=== PATIENT | male | born 2000 | race American Indian/Alaskan Native ===

== ENCOUNTER 2022-02-10 11:39 | Observation (INO) | payer MEDICARE, MEDICAID ==
[2022-02-10] MEDS ORDERED: IBUPROFEN 800 MG TAB PO NR (12:14)
--- NOTE | 2022-02-10 12:19 | Emergency Department Report ---
HPI - General Chief Complaint: Fever Time Seen by Provider: 02/10/22 11:53 - HPI HPI: Room 8 Patient is a 21-year-old male present with a chief complaint of fever. Patient is currently at [facility] secondary to schizophrenia with persistent disor ganized thought process. Patient was found to develop a fever yesterday and has been given Tylenol several times. Patient was sent to the ED for further evaluation patient's fever. When asked how the patient is feeling he states he feels "depleted." The patient admits to a slight cough that is productive of yellow sputum. Patient admits to rhinorrhea and nausea without vomiting. The patient states he has been vaccinated against COVID receiving 2 doses ED Past Medical Hx - Past Medical History Hx Hypertension: Yes Hx Psychiatric Treatment: Yes (Schizophrenia, bipolar disorder) Hx Asthma: Yes - Surgical History Additional Surgical History: Rotator cuff surgery, arch repair bilateral feet, T&A ED Review of Systems ROS: Stated complaint: FEVER Other details as noted in HPI Constitutional: fever, malaise Eyes: denies: eye pain ENT: denies: throat pain Respiratory: cough Cardiovascular: denies: chest pain Endocrine: no symptoms reported Gastrointestinal: nausea. denies: vomiting Genitourinary: denies: dysuria Musculoskeletal: denies: back pain Neurological: headache Physical Exam - Physical Exam Vital Signs: Vital Signs 02/10/22 11:43 Temperature 104.1 F H Pulse Rate 60 Respiratory 14 Rate Blood Pressure 140/90 [Left] O2 Sat by Pulse 98 Oximetry Physical Exam: GENERAL: The patient is well-developed well-nourished male lying on stretcher not appearing to be in acute distress. [] HEENT: Normocephalic. Atraumatic. Extraocular motions are intact. Patient has moist mucous membranes. NECK: Supple. No meningitic signs are noted. There is no nuchal rigidity CHEST/LUNGS: Clear to auscultation. There is no respiratory distress noted. HEART/CARDIOVASCULAR: Regular. There is no tachycardia. There is no gallop rub or murmur. ABDOMEN: Abdomen is soft, with trace discomfort to palpation in the left lower quadrant. Patient has normal bowel sounds. There is no abdominal distention. SKIN: There is no rash. There is no edema. There is no diaphoresis. NEURO: The patient is awake, alert, and oriented. The patient is cooperative. The patient has no focal neurologic deficits. The patient has normal speech. Cranial nerves II through XII grossly intact. GCS 15 MUSCULOSKELETAL: There is no evidence of acute injury. ED Course Vital Signs 02/10/22 11:43 Temperature 104.1 F H Pulse Rate 60 Respiratory 14 Rate Blood Pressure 140/90 [Left] O2 Sat by Pulse 98 Oximetry ED Medical Decision Making - Lab Data Result diagrams: 02/10/22 13:37 02/10/22 12:20 - Differential Diagnosis URI, pneumonia, viral syndrome Critical care attestation.: If time is entered above; I have spent that time in minutes in the direct care of this critically ill patient, excluding procedure time. ED Disposition Clinical Impression: Sepsis associated hypotension Disposition: ADMITTED INPATIENT Is pt being admited?: Yes Does the pt Need Aspirin: No Condition: Fair Time of Disposition: 17:00 (Care transferred to hospitalist (Dr. Alonso))
--- NOTE | 2022-02-10 14:05 | XRay Report ---
CHEST 1 VIEW 02/10/2022 12:54 PM INDICATION / CLINICAL INFORMATION: Cough, fever. COMPARISON: None available. FINDINGS: SUPPORT DEVICES: None. HEART / MEDIASTINUM: No significant abnormality. LUNGS / PLEURA: No significant pulmonary or pleural abnormality. No pneumothorax. ADDITIONAL FINDINGS: No significant additional findings. IMPRESSION: 1. No acute findings. Signer Name: Miller Obrien MD Signed: 02/10/2022 2:01 PM Workstation Name: [employer]
[2022-02-10 14:16] LABS: Basophils # (Auto) 0.1 K/mm3 (0.0-0.1); Basophils % (Auto) 0.4 % (0.0-1.8); Eosinophils # (Auto) 0.1 K/mm3 (0.0-0.4); Eosinophils % (Auto) 0.7 % (0.0-4.3); Hematocrit 36.4 % (35.5-45.6); Hemoglobin 12.2 gm/dl (11.8-15.2); Lymphocytes # (Auto) 1.6 K/mm3 (1.2-5.4); Lymphocytes % (Auto) 11.3 % (13.4-35.0); Mean Corpuscular HGB Conc 34 % (32-34); Mean Corpuscular Volume 86 fl (84-94); Monocytes # (Auto) 1.4 K/mm3 (0.0-0.8); Platelet Count 158 K/mm3 (140-440); Red Blood Count 4.25 M/mm3 (3.65-5.03); Red Cell Distribution Width 13.9 % (13.2-15.2)
[2022-02-10] MEDS ORDERED: SODIUM CHLORIDE 0.9% 1000 ML 1,000 ML IV ONE ×3 (14:22→15:55)
[2022-02-10 16:35] LABS: Alanine Aminotransferase 16 units/L (7-56); Albumin 2.9 g/dL (3.9-5); BUN/Creatinine Ratio 8; Blood Urea Nitrogen 8 mg/dL (9-20); Calcium 8.8 mg/dL (8.4-10.2); Hemolysis Index 75
[2022-02-10] MEDS ORDERED: PIPERACIL/TAZOBACTA 4.5/NS 100 4.5 GM/100 ML VIAL IV ONE (17:00)
[2022-02-11 05:14] LABS: Color,Urine Yellow (Yellow)
--- NOTE | 2022-02-11 14:16 | History and Physical Report ---
History of Present Illness Chief complaint: I have been coughing History of present illness: 21 YO Male [facility] resident under voluntary status with Obesity, HTN, Mild Intermittent Asthma, Bipolar Disorder, Schizophrenia presents to ED for evaluation. Patient reports "I have been coughing". Patient reports that over the past 2 days he has experienced objective fever, productive cough with yellowish sputum. EMS was notified and upon arrival the patient was evaluated and subsequently transported to [facility] for further care and evaluation of the aforementioned symptoms. The patient was seen and evaluated in the emergency department. All lab and imaging studies reviewed. Patient found to have fever of unknown origin suspected complicated by sepsis. Patient admitted to medical floor and initiated on IV antibiotic therapy. Patient denies chills, chest pain, palpitation, skin rash, recent contact, known exposure to COVID-19. Patient is currently vaccinated against COVID-19. Past History Past Medical History: hypertension, other (See HPI) Past Surgical History: Other (Rotator cuff surgery) Social history: single. denies: smoking, alcohol abuse, prescription drug abuse Family history: hypertension Medications and Allergies Allergies Allergy/AdvReac Type Severity Reaction Status Date / Time No Known Allergies Allergy Unverified 02/11/22 07:45 Home Medications Medication Instructions Recorded Confirmed Last Taken Type Albuterol Mdi (or & Nicu Only) 90 mcg INHALATION Q8H PRN 02/11/22 02/11/22 Unknown History [ProAir HFA Inhaler] Ciprofloxacin HCl 500 mg PO DAILY #3 02/11/22 Unknown Rx Divalproex Sodium [Depakote] 500 mg PO BID 02/11/22 02/11/22 Unknown History [place] Carbonate 300 mg PO BID 02/11/22 02/11/22 Unknown History Multivit-Min/Iron Fum/Folic AC 1 cap PO DAILY 02/11/22 02/11/22 Unknown History [Elmax-Qfradjc-Mcvytpcs Tablet] OLANzapine [ZyPREXA] 5 mg PO QDAY 02/11/22 02/11/22 Unknown History S-Adenosylmethionine Sul Tosyl 400 mg PO QDAY 02/11/22 02/11/22 Unknown History [Edil-E] Ziprasidone HCl [Geodon] 80 mg PO BID 02/11/22 02/11/22 Unknown History fluvoxaMINE (NF) [Luvox (Nf) Tab] 50 mg PO QHS 02/11/22 02/11/22 Unknown History Review of Systems Constitutional: fever, no weight loss, no weight gain, no chills, no sweats Ears, nose, mouth and throat: no ear pain, no tinnitis, no nose pain, no nasal discharge Cardiovascular: no chest pain, no orthopnea, no palpitations, no rapid/irregular heart beat, no edema Respiratory: cough, no hemoptysis, no shortness of breath Gastrointestinal: no abdominal pain, no nausea, no vomiting, no constipation Genitourinary Male: no flank pain, no discharge, no urinary frequency, no urinary hesitancy Rectal: no pain, no incontinence, no bleeding Musculoskeletal: no neck pain, no arm numbness/tingling, no shooting leg pain, no leg numbness/tingling Integumentary: no rash, no pruritis, no sores Neurological: no transient paralysis, no numbness, no seizures, no ataxia Psychiatric: no anxiety, no insomnia, no change in appetite, no suicidal ideation, no disorientation Endocrine: no polyphagia, no nocturia Allergic/Immunologic: no urticaria Exam - Constitutional Vitals: Temp Pulse Resp BP Pulse Ox 98.9 F 101 H 16 131/88 98 02/11/22 09:42 02/10/22 22:30 02/11/22 09:48 02/11/22 09:39 02/11/22 09:48 General appearance: Present: mild distress - EENT Eyes: Present: PERRL ENT: hearing intact, clear oral mucosa - Neck Neck: Present: supple, normal ROM - Respiratory Respiratory effort: normal Respiratory: bilateral: CTA - Cardiovascular Heart Sounds: Present: S1 & S2. Absent: rub, click - Extremities Extremities: pulses symmetrical, No edema Peripheral Pulses: within normal limits - Abdominal General gastrointestinal: Present: soft, non-tender, non-distended, normal bowel sounds Male genitourinary: Present: normal - Integumentary Integumentary: Present: clear, warm, dry - Musculoskeletal Musculoskeletal: gait normal, strength equal bilaterally - Psychiatric Psychiatric: appropriate mood/affect, intact judgment & insight - Neurologic Neurologic: CNII-XII intact, moves all extremities Results - Labs CBC & Chem 7: 02/10/22 13:37 02/10/22 12:20 Labs: Abnormal lab results 02/10/22 02/10/22 02/10/22 Range/Units 12:20 12:20 13:37 WBC 14.4 H (4.5-11.0) K/mm3 Lymph % (Auto) 11.3 L (13.4-35.0) % [place] % (Auto) 10.0 H (0.0-7.3) % [place] # (Auto) 1.4 H (0.0-0.8) K/mm3 Seg Neutrophils % 77.6 H (40.0-70.0) % Seg Neutrophils # 11.2 H (1.8-7.7) K/mm3 Sodium 136 L (137-145) mmol/L Potassium 5.1 H (3.6-5.0) mmol/L Carbon Dioxide 19 L (22-30) mmol/L BUN 8 L (9-20) mg/dL Glucose 104 H (75-100) mg/dL Lactic Acid 2.50 H* (0.7-2.0) mmol/L Albumin 2.9 L (3.9-5) g/dL Assessment and Plan - Patient Problems (1) Sepsis Current Visit: Yes Status: Suspected Plan to address problem: Chest x-ray, urinalysis, IV fluid resuscitation therapy, IV antibiotic therapy. (2) Atypical pneumonia Current Visit: Yes Status: Acute Plan to address problem: chest x ray, IV antibiotic therapy (3) Obesity Current Visit: Yes Status: Acute Qualifiers: Body mass index: BMI 33.0-33.9 Plan to address problem: Balanced diet, increase physical activity discharge. (4) Bipolar disorder Current Visit: Yes Status: Acute Plan to address problem: Mental health team consulted. Outpatient psychiatry follow-up. (5) Schizophrenia Current Visit: Yes Status: Acute Plan to address problem: Outpatient psychiatry follow-up. Continue medical management. (6) DVT prophylaxis Current Visit: Yes Status: Acute Plan to address problem: SCD to bilateral lower extremities while in bed (7) Advance care planning Current Visit: Yes Status: Acute Plan to address problem: Disease education conducted, care plan discussed, diagnoses discussed, prognosis discussed, patient is full code, +30 minutes. (8) Preventative health care Current Visit: Yes Status: Acute Plan to address problem: Patient counseled regarding risk factor reduction, safe driving, outpatient follow-up with primary care physician for all age and risk factor appropriate sc reening test. Outpatient psychiatry follow-up. +30 minutes.
[2022-02-11] MEDS ORDERED: SODIUM CHLORIDE 0.9% 1000 ML IV SOLN IV ONE (14:18)
[2022-02-11] MEDS ORDERED: ONDANSETRON 4 MG/2 ML INJ IV PRN (14:18)
[2022-02-11] MEDS ORDERED: HYDROmorphone 0.5 MG/0.5 ML INJ IV PRN ×2 (14:18)
[2022-02-11] MEDS ORDERED: ACETAMINOPHEN 325 MG TAB PO PRN ×2 (14:18)
[2022-02-11] MEDS ORDERED: oxyCODONE /ACETAMINOPHEN 5-325MG TAB PO PRN (14:18)
[2022-02-11] MEDS ORDERED: SODIUM CHLORIDE 0.9% 1000 ML 1,000 ML IV SCH (14:30)
--- NOTE | 2022-02-11 15:22 | Discharge Summary ---
Providers - Providers Date of Admission: 02/10/22 19:00 Attending physician: VASILE HERNANDEZ Primary care physician: PROGRAM AIDE Hospitalization Condition: Fair Hospital course: 21 YO Male [facility] resident under voluntary status with Obesity, HTN, Mild Intermittent Asthma, Bipolar Disorder, Schizophrenia presents to ED for evaluation. Patient reports "I have been coughing". Patient reports that over the past 2 days he has experienced objective fever, productive cough with yellowish sputum. EMS was notified and upon arrival the patient was evaluated and subsequently transported to [facility] for further care and evaluation of the aforementioned symptoms. The patient was seen and evaluated in the emergency department. All lab and imaging studies reviewed. Patient found to have fever of unknown origin suspected complicated by sepsis. Patient admitted to medical floor and initiated on IV antibiotic therapy. Patient denies chills, chest pain, palpitation, skin rash, recent contact, known exposure to COVID-19. Patient is currently vaccinated against COVID-19. Patient convalesced well during hospital course. Patient underwent coronavirus testing and was found to be COVID-negative. Patient medically optimized and back to usual state of health and subsequent discharged to [facility]. Patient seen and evaluated prior to discharge no significant physical exam findings. 35 minutes dedicated to patient discharge and coordination of care. Patient symptoms sound secondary to systemic inflammatory response syndrome and symptoms resolved with therapy. Disposition: [address] [place] [address] Final Discharge Diagnosis (Prints w/discharge instructions): Systemic inflammatory response syndrome Time spent for discharge: 35 minutes Core Measure Documentation - Palliative Care Palliative Care/ Comfort Measures: Not Applicable - Core Measures Any of the following diagnoses?: none Exam - Constitutional Vitals: Temp Pulse Resp BP Pulse Ox 98.9 F 101 H 16 131/88 98 02/11/22 09:42 02/10/22 22:30 02/11/22 09:48 02/11/22 09:39 02/11/22 09:48 General appearance: Present: no acute distress, obese - EENT Eyes: Present: PERRL ENT: hearing intact, clear oral mucosa - Neck Neck: Present: supple, normal ROM - Respiratory Respiratory effort: normal Respiratory: bilateral: CTA - Cardiovascular Heart Sounds: Present: S1 & S2. Absent: rub, click - Extremities Extremities: pulses symmetrical, No edema Peripheral Pulses: within normal limits - Abdominal General gastrointestinal: Present: soft, non-tender, non-distended, normal bowel sounds Male genitourinary: Present: normal - Integumentary Integumentary: Present: clear, warm, dry - Musculoskeletal Musculoskeletal: gait normal, strength equal bilaterally - Psychiatric Psychiatric: appropriate mood/affect, intact judgment & insight - Neurologic Neurologic: CNII-XII intact, moves all extremities Plan Follow up with: PRIMARY CARE, [Primary Care Provider] - 7 Days Prescriptions: Ciprofloxacin HCl 500 mg PO DAILY #3
[2022-02-11 17:33] VITALS: BP 132/71
[2022-02-11] MEDS ORDERED: FLUVOXAMINE 50 MG PO SCH (22:00)
[2022-02-11] MEDS ORDERED: NON-FORMULARY EACH (Ziprasidone Hcl [Geodon] 80 MG Capsule) PO SCH (22:00)
[2022-02-11] MEDS ORDERED: ZIPRASIDONE 40 MG CAP PO SCH (22:00)
[2022-02-11] MEDS ORDERED: NON-FORMULARY EACH (Lithium Carbonate [Lithium Carbonate] 300 MG Tablet) PO SCH (22:00)
[2022-02-11] MEDS ORDERED: DIVALPROEX DR 500 MG TAB PO SCH (22:00)
[2022-02-11] MEDS ORDERED: LITHIUM CARBONATE 300 MG CAP PO SCH (22:00)
[2022-02-12] MEDS ORDERED: S ADENOSYLMETHIONINE SUL TOSYL 400 MG PO SCH (10:00)
[2022-02-12] MEDS ORDERED: MULTIVITAMINS,THER W-MINERALS TAB PO SCH (10:00)
== END 2022-02-11 20:15 ==
LOC: ED 11:39 → INTOOBSV 19:00 → 3A 19:00
PROVIDERS: ADMIT Internal Medicine; ATTEND Internal Medicine
DX: A41.9 Sepsis, unspecified organism (principal); Z20.822 Contact with and (suspected) exposure to COVID-19; J18.9 Pneumonia, unspecified organism; I10 Essential (primary) hypertension; J45.909 Unspecified asthma, uncomplicated; I95.9 Hypotension, unspecified; E66.9 Obesity, unspecified; F31.9 Bipolar disorder, unspecified; F20.9 Schizophrenia, unspecified; F29 Unspecified psychosis not due to a substance or known physiological condition; Z79.899 Other long term (current) drug therapy; Z98.890 Other specified postprocedural states; Z68.33 Body mass index [BMI] 33.0-33.9, adult
CPT/HCPCS: 36415; 71045; 80053; 80164; 80178; 81001; 82140; 85025; 86850; 86900; 86901; 87040; 87502; 96361; 96365; 99284; G0378; J2543; J3490; J7030; U0003